=== PATIENT | female | born 1995 | race Caucasian/White ===

== ENCOUNTER 2017-05-20 17:21 | Emergency (ER) | payer OTHER ==
[2017-05-20 18:28] LABS: ADD MAN DIFF? NO; BASOPHILS % 0.4 % (0.0-2.0); EOSINOPHILS # 0.2 10^3/ul (0.0-0.5); HEMATOCRIT 38.7 % (37.0-47.0); HEMOGLOBIN 13.3 g/dl (12.0-16.0); LYMPHOCYTES # 2.6 10^3/ul (0.8-2.9); LYMPHOCYTES % 22.8 % (15.0-51.0); MEAN CORPUSCULAR HEMOGLOBIN 29.5 pg (29.0-33.0); MEAN CORPUSCULAR HGB CONC 34.4 g/dl (32.0-37.0); MEAN CORPUSCULAR VOLUME 85.8 fl (82.0-101.0); MONOCYTE # 0.5 10^3/ul (0.3-0.9); MONOCYTES % 4.5 % (0.0-11.0); NEUTROPHIL # 7.9 10^3/ul (1.6-7.5); PLATELET COUNT 288 10^3/UL (140-415); RED BLOOD COUNT 4.51 10^6/ul (4.20-5.40); RED CELL DISTRIBUTION WIDTH 12.2 % (11.5-14.5)
[2017-05-20 18:28] LABS: WHITE BLOOD COUNT 11.2 10^3/ul (4.8-10.8)
[2017-05-20 18:44] LABS: ALANINE AMINOTRANSFERASE 32 IU/L (13-69); ALBUMIN 4.6 g/dl (3.3-4.9); ALBUMIN/GLOBULIN RATIO 1.27; ALKALINE PHOSPHATASE 77 IU/L (42-121); ANION GAP 18 (8-16); ASPARTATE AMINO TRANSFERASE 20 IU/L (15-46); BLOOD UREA NITROGEN 6 mg/dl (7-20); CALCIUM 9.2 mg/dl (8.4-10.2); CARBON DIOXIDE 23 mmol/L (21-31); CHLORIDE 106 mmol/L (97-110); CREATININE 0.53 mg/dl (0.44-1.00); GLUCOSE 84 mg/dl (70-220); POTASSIUM 3.9 mmol/L (3.5-5.1); SODIUM 143 mmol/L (135-144); TOTAL PROTEIN 8.2 g/dl (6.1-8.1)
[2017-05-20 18:59] LABS: INR 0.94; PROTIME 12.7 Sec (11.9-14.9)
[2017-05-20 19:00] LABS: PARTIAL THROMBOPLASTIN TIME 30.3 Sec (25.0-35.0)
[2017-05-20 19:02] LABS: ADD UMIC YES; UR ASCORBIC ACID NEGATIVE (NEGATIVE); UR BILIRUBIN (Dip) NEGATIVE (NEGATIVE); UR BLOOD (Dip) 2+ mg/dL (NEGATIVE); UR CLARITY SLIGHTLY CLOUDY (CLEAR); UR COLOR YELLOW (YELLOW); UR GLUCOSE (Dip) NEGATIVE (NEGATIVE); UR KETONES (Dip) NEGATIVE (NEGATIVE); UR LEUKOCYTE ESTERASE (Dip) TRACE Leu/ul (NEGATIVE); UR MUCUS FEW /HPF (NONE SEEN); UR NITRITE (Dip) NEGATIVE (NEGATIVE); UR RBC 6 /HPF (0-5); UR SQUAMOUS EPITHELIAL CELL FEW /HPF (FEW); UR TOTAL PROTEIN (Dip) 1+ mg/dl (NEGATIVE); UR UROBILINOGEN (Dip) NEGATIVE (NEGATIVE); UR WBC 2 /HPF (0-5)
== END 2017-05-20 20:34 | disposition home or self-care (01) ==
LOC: FTE 17:21
DX: R21 Rash and other nonspecific skin eruption (principal); R10.9 Unspecified abdominal pain
CPT/HCPCS: 36415; 80053; 81001; 81025; 85025; 85610; 85730; 99283-25

== ENCOUNTER 2018-05-06 09:41 | Emergency (ER) | payer OTHER | END 2018-05-06 10:42 | disposition home or self-care (01) | LOC: FTE 09:41 | DX: O99.89 Other specified diseases and conditions complicating pregnancy, childbirth and the puerperium (principal); H92.03 Otalgia, bilateral; R09.89 Other specified symptoms and signs involving the circulatory and respiratory systems; Z3A.30 30 weeks gestation of pregnancy | CPT/HCPCS: 99283 ==

== ENCOUNTER 2018-05-06 10:56 | Outpatient (CLI) | payer OTHER ==
[2018-05-06] MEDS ORDERED: LACTATED RINGER'S 1,000 ML IV (11:50)
[2018-05-06] MEDS ORDERED: METHYLERGONOVINE 0.2 MG INJ IM (12:00)
[2018-05-06] MEDS ORDERED: LIDOCAINE 1% (MPF) 30 ML INJ INJ (12:00)
[2018-05-06] MEDS ORDERED: IBUPROFEN 600 MG TAB PO (12:00)
[2018-05-06] MEDS ORDERED: MISOPROSTOL 200 MCG TAB PR (12:00)
[2018-05-06] MEDS ORDERED: CARBOPROST 250 MCG INJ IM (12:00)
[2018-05-06] MEDS ORDERED: OXYTOCIN 30 UNITS/LR 500 ML IV ×3 (12:00)
[2018-05-06] MEDS ORDERED: BUTORPHANOL 2 MG INJ IV (12:00)
== END 2018-05-06 13:46 | disposition home or self-care (01) ==
LOC: OBT 10:56 → L-D 10:57 → OBT 13:46
DX: O26.893 Other specified pregnancy related conditions, third trimester (principal); H92.03 Otalgia, bilateral; Z3A.29 29 weeks gestation of pregnancy
CPT/HCPCS: 76818

== ENCOUNTER 2018-07-12 19:39 | Inpatient (IN) | payer OTHER ==
[2018-07-12] MEDS: LACTATED RINGER'S 1,000 ML IV (20:50)
[2018-07-12] MEDS: AMPICILLIN 2 GM/NS (PMX) 100 ML IV (20:54)
[2018-07-12] MEDS ORDERED: MISOPROSTOL 200 MCG TAB PR (21:00)
[2018-07-12] MEDS ORDERED: CARBOPROST 250 MCG INJ IM (21:00)
[2018-07-12] MEDS ORDERED: METHYLERGONOVINE 0.2 MG INJ IM (21:00)
[2018-07-12] MEDS ORDERED: BUTORPHANOL 2 MG INJ IV (21:00)
[2018-07-12] MEDS ORDERED: OXYTOCIN 30 UNITS/LR 500 ML IV ×2 (21:00)
[2018-07-12] MEDS ORDERED: LIDOCAINE 1% (MPF) 30 ML INJ INJ (21:00)
[2018-07-12 21:07] LABS: ADD MAN DIFF? NO
[2018-07-12 21:13] LABS: BASOPHILS % 0.2 % (0.0-2.0); EOSINOPHILS # 0.1 10^3/ul (0.0-0.5); EOSINOPHILS % 0.6 % (0.0-7.0); HEMATOCRIT 36.2 % (37.0-47.0); HEMOGLOBIN 12.1 g/dl (12.0-16.0); LYMPHOCYTES # 1.7 10^3/ul (0.8-2.9); LYMPHOCYTES % 14.8 % (15.0-51.0); MEAN CORPUSCULAR HEMOGLOBIN 30.1 pg (29.0-33.0); MEAN CORPUSCULAR HGB CONC 33.4 g/dl (32.0-37.0); MEAN PLATELET VOLUME 10.3 fl (7.4-10.4); MONOCYTE # 0.5 10^3/ul (0.3-0.9); MONOCYTES % 4.5 % (0.0-11.0); NEUTROPHIL # 8.9 10^3/ul (1.6-7.5); NEUTROPHILS % 79.3 % (39.0-77.0); PLATELET COUNT 195 10^3/UL (140-415); RED BLOOD COUNT 4.02 10^6/ul (4.20-5.40); RED CELL DISTRIBUTION WIDTH 13.9 % (11.5-14.5)
[2018-07-12 21:13] LABS: WHITE BLOOD COUNT 11.3 10^3/ul (4.8-10.8)
[2018-07-12 21:32] LABS: INR 0.93; PARTIAL THROMBOPLASTIN TIME 28.5 Sec (23.0-35.0); PROTIME 12.6 Sec (11.9-14.9)
[2018-07-12 22:03] LABS: HEPATITIS B SURFACE ANTIGEN NEGATIVE (NEGATIVE)
[2018-07-13] MEDS ORDERED: METHYLERGONOVINE 0.2 MG INJ IM (00:30)
[2018-07-13] MEDS ORDERED: CARBOPROST 250 MCG INJ IM (00:30)
[2018-07-13] MEDS ORDERED: MISOPROSTOL 200 MCG TAB PR (00:30)
[2018-07-13] MEDS ORDERED: ACETAMINOPHEN 325 MG TAB PO (00:30)
[2018-07-13] MEDS ORDERED: ONDANSETRON 4 MG INJ IV (00:30)
[2018-07-13] MEDS ORDERED: NACL 0.9% 3 ML SYG IV (00:30)
[2018-07-13] MEDS ORDERED: OXYTOCIN 30 UNITS/LR 500 ML IV (00:30)
[2018-07-13] MEDS ORDERED: AMPICILLIN 1 GM/NS (PMX) 50 ML IV (01:00)
[2018-07-13] MEDS: OXYTOCIN 30 UNITS/LR 500 ML IV ×2 (01:11→04:20)
[2018-07-13] MEDS: BENZOCAINE 20% 56 ML SPRAY TOP (03:43)
[2018-07-13] MEDS: LACTATED RINGER'S 1,000 ML IV ×2 (04:34→12:34)
[2018-07-13] MEDS: IBUPROFEN 800 MG TAB PO ×3 (06:23→17:37)
[2018-07-13 08:23] LABS: HEMATOCRIT 31.6 % (37.0-47.0); HEMOGLOBIN 10.7 g/dl (12.0-16.0)
[2018-07-13 15:23] LABS: RAPID PLASMA REAGIN NONREACTIVE (NR)
[2018-07-14] MEDS: IBUPROFEN 800 MG TAB PO ×4 (01:21→18:10)
[2018-07-14] MEDS: LANOLIN HPA 1 PKT TOP (13:25)
[2018-07-15] MEDS: IBUPROFEN 800 MG TAB PO ×2 (00:13→05:16)
== END 2018-07-15 11:40 | disposition home or self-care (01) | DRG 807 ==
LOC: OBT 19:39 → L-D 19:41 → PP1 07-13 01:51 → OBT 20:25 → L-D 20:25
PROVIDERS: Obstetrics & Gynecology
PROC: 10E0XZZ Delivery of Products of Conception, External Approach (ICD-10-PCS; principal; 2018-07-13)
PROC: 0HQ9XZZ Repair Perineum Skin, External Approach (ICD-10-PCS; 2018-07-13)
DX: O70.0 First degree perineal laceration during delivery (principal); Z37.0 Single live birth; Z3A.39 39 weeks gestation of pregnancy
CPT/HCPCS: 85014; 85018; 85025; 85610; 85730; 86592; 86850; 86900; 86901; 87340; 99464